=== PATIENT | male | born 1975 | race Caucasian/White ===

== ENCOUNTER 2019-04-20 12:17 | Emergency (ER) | payer OTHER ==
[2019-04-20] MEDS ORDERED: Aspirin 81 mg CHEW TAB* 81 MG TAB.CHEW PO ONE (12:31)
[2019-04-20 12:32] VITALS: BP 111/68
--- NOTE | 2019-04-20 12:41 | UC ---
Cardiac HPI - HPI Summary HPI Summary: 43-year-old male presents with complaints of palpitations, chest tightness, and shortness of breath. States last night around 8:00 or 9:00 PM he was sitting on the couch watching television and had a "funny feeling" in his chest with some chest tightness and shortness of breath. Reports he took his pulse and was in the 40s. Episode subsided after a few minutes. Patient states he was at work today, sitting in a chair, and again developed some chest tightness and shortness of breath that lasted for several minutes. Patient also states that he has had some intermittent lower abdominal cramping for the past 2 days. No personal or family history of heart disease. Denies fever, chills, cough, dizziness, weakness, diaphoresis, nausea, vomiting, or diarrhea. - History of Current Complaint Stated Complaint: PALPITATIONS/ABDOMINAL CRAMPING Time Seen by Provider: 04/20/19 12:19 Hx Obtained From: Patient Pain Intensity: 0 - Allergy/Home Medications Allergies/Adverse Reactions: Allergies Allergy/AdvReac Type Severity Reaction Status Date / Time clarithromycin [From Biaxin] Allergy Rash, Verified 04/20/19 12:32 Difficulty Breaking latex Allergy Contact Verified 04/20/19 12:32 Rash Home Medications: Home Medications Acetaminophen [Acetaminophen Extra Strength] 1,000 mg PO Q6H PRN 04/20/19 [ History Confirmed 04/20/19] PMH/Surg Hx/FS Hx/Imm Hx Previously Healthy: Yes - Denies significant PMH - Surgical History Surgical History: Yes Surgery Procedure, Year, and Place: Right Shoulder Surgeries x 4, C4-C5 Fusion, Lumbar Discectomy - Family History Known Family History: Positive: Non-Contributory - Social History Occupation: Employed Full-time Lives: With Family Alcohol Use: Rare Substance Use Type: None Smoking Status (MU): Former Smoker Length of Time of Smoking/Using Tobacco: 1/2 PPD x 12 Years When Did the Patient Quit Smoking/Using Tobacco: November 2018 Review of Systems All Other Systems Reviewed And Are Negative: Yes Constitutional: Negative: Fever, Chills Respiratory: Positive: Shortness Of Breath. Negative: Cough Cardiovascular: Positive: Palpitations, Chest Pain Gastrointestinal: Positive: Abdominal Pain. Negative: Vomiting, Diarrhea, Nausea Genitourinary: Positive: Negative Musculoskeletal: Positive: Negative Neurological: Positive: Negative Is Patient Immunocompromised?: No Physical Exam - Summary Physical Exam Summary: GENERAL APPEARANCE: Well developed, well nourished, alert and cooperative, and appears to be in no acute distress. CARDIAC: Normal S1 and S2. No S3, S4 or murmurs. Rhythm is regular. There is no peripheral edema, cyanosis or pallor. Extremities are warm and well perfused. Capillary refill is less than 2 seconds. Peripheral pulses intact. LUNGS: Clear to auscultation without rales, rhonchi, wheezing or diminished breath sounds. ABDOMEN: Positive bowel sounds. Soft, nondistended, nontender. No guarding or rebound. No masses or hepatosplenomegally. MUSKULOSKELETAL: ROM intact to all extremities. No joint erythema or tenderness. Normal muscular development. Normal gait. SKIN: Skin normal color, texture and turgor with no lesions or eruptions. Triage Information Reviewed: Yes Vital Signs: Initial Vital Signs Temp 98.4 F 04/20/19 12:28 Pulse 75 04/20/19 12:28 Resp 16 04/20/19 12:28 BP 111/68 04/20/19 12:28 Pulse Ox 100 04/20/19 12:28 Vital Signs Reviewed: Yes Diagnostics - EKG Summary of EKG Findings: NSR rate of 72. Nonspecific T-wave changes. Minimal GODWIN in anterior leads. No ectopy noted. No previous study for comparison. - Assessment/Plan Course Of Treatment: 43-year-old male presents with complaints of palpitations, chest tightness, and shortness of breath. States last night around 8:00 or 9:00 PM he was sitting on the couch watching television and had a "funny feeling" in his chest with some chest tightness and shortness of breath. Reports he took his pulse and was in the 40s. Episode subsided after a few minutes. Patient states he was at work today, sitting in a chair, and again developed some chest tightness and shortness of breath that lasted for several minutes. Patient also states that he has had some intermittent lower abdominal cramping for the past 2 days. No personal or family history of heart disease. Denies fever, chills, cough, dizziness, weakness, diaphoresis, nausea, vomiting, or diarrhea. Afebrile. Vital signs stable. Exam is overall unremarkable. Twelve-lead EKG showed normal sinus rhythm rate of 72. Nonspecific T-wave changes. Minimal GODWIN in anterior leads. No ectopy noted. No previous study for comparison. Based on patient's history and the presence of EKG changes recommending that he be evaluated in the emergency room with transport by EMS. Patient is agreeable to this. An IV was established and the patient was given aspirin 324 mg PO prior to transport. - Differential Diagnoses - Chest Pain Differential Diagnosis/HQI/PQRI: Acute UT, ACS, GI Disease, Lower Respiratory Infection - Clinical Impression Provider Diagnosis: Chest pain Discharge ED - Sign-Out/Discharge Documenting (check all that apply): Patient Departure All imaging exams completed and their final reports reviewed: No Studies - Discharge Plan Condition: Guarded Disposition: TRANS HIGHER LVL OF CARE FAC - Billing Disposition and Condition Condition: GUARDED Disposition: Trans Higher Lvl of Care Fac
== END 2019-04-20 12:59 | disposition short-term general hospital (02) ==
LOC: UCCORT 12:17
DX: R07.9 Chest pain, unspecified (principal); Z87.891 Personal history of nicotine dependence; Z88.1 Allergy status to other antibiotic agents
CPT/HCPCS: 93005; 99203; A9270-GY; G0463

== ENCOUNTER 2019-04-20 13:59 | Emergency (ER) | payer OTHER ==
--- NOTE | 2019-04-20 14:36 | ED ---
HPI Cardiac - HPI Summary HPI Summary: 43 year old male presents to [facility] with a chief complaint of intermittent palpitations starting last night. His symptoms began 3 weeks ago when his heart rate went down to 40 bpm at rest. He notes that he had an episode of chest pain and palpitations last night. This morning at 0400 he felt brief chest pain that felt like pressure as well as lower abdominal cramps. He denies nausea, vomiting , dizziness, and feeling near-syncopal. Patient reports no radiation of pain. He received nitro and ASA today with relief in Sx. He has no history of HTN, DM , and HLD. Patient reports no Hx of cardiac disease and no past stress test. PSHx of shoulder surgery, left, x4 and spinal fusion. He quit smoking in November, but continues to vape. No family history of HTN, HLD, or DM. Rare alcohol consumption is noted. No FMHx of IN at his age is noted. - History of Current Complaint Chief Complaint: EDChestPainROMI Stated Complaint: PALIPTATIONS PER EMS Time Seen by Provider: 04/20/19 14:09 Hx Obtained From: Patient Onset/Duration: Started Hours Ago, Resolved Timing: Intermittent Initial Severity: Mild Current Severity: None Pain Intensity: 0 Pain Scale Used: 0-10 Numeric Chest Pain Radiates: No Associated Signs and Symptoms: Positive: Chest Pain, Palpitations, Abdominal Pain, Other: - negative - Feelings of syncope. Negative: Dizziness, Lightheadedness, Nausea, Vomiting - Allergy/Home Medications Allergies/Adverse Reactions: Allergies Allergy/AdvReac Type Severity Reaction Status Date / Time clarithromycin [From Biaxin] Allergy Rash, Verified 04/20/19 12:32 Difficulty Breaking latex Allergy Contact Verified 04/20/19 12:32 Rash PMH/Surg Hx/FS Hx/Imm Hx Previously Healthy: Yes Endocrine/Hematology History: Denies: Hx Diabetes Cardiovascular History: Denies: Hx Hypercholesterolemia, Hx Hypertension - Surgical History Surgery Procedure, Year, and Place: Right Shoulder Surgeries x 4, C4-C5 Fusion, Lumbar Discectomy Infectious Disease History: No Infectious Disease History: Denies: Traveled Outside the [place] in Last 30 Days - Family History Known Family History: Negative: Cardiac Disease, Hypertension, Diabetes - Social History Alcohol Use: Rare Substance Use Type: Reports: None Smoking Status (MU): Former Smoker Length of Time of Smoking/Using Tobacco: 1/2 PPD x 12 Years Review of Systems Positive: Palpitations, Chest Pain Positive: Abdominal Pain. Negative: Vomiting, Nausea Neurological: Other - negative - dizziness, light-headedness Negative: Syncope - felt like he might syncope All Other Systems Reviewed And Are Negative: Yes Physical Exam - Summary Physical Exam Summary: VITAL SIGNS: Reviewed. GENERAL: Patient is a well-developed and nourished male who is lying comfortable in the stretcher. Patient is not in any acute respiratory distress. HEAD AND FACE: No signs of trauma. No ecchymosis, hematomas or skull depressions. No sinus tenderness. EYES: PERRLA, EOMI x 2, No injected conjunctiva, no nystagmus. EARS: Hearing grossly intact. Ear canals and tympanic membranes are within normal limits. MOUTH: Oropharynx within normal limits. NECK: Supple, trachea is midline, no adenopathy, no JVD, no carotid bruit, no c- spine tenderness, neck with full ROM. CHEST: Symmetric, no tenderness at palpation. LUNGS: Clear to auscultation bilaterally. No wheezing or crackles. CVS: Regular rate and rhythm, S1 and S2 present, no murmurs or gallops appreciated. ABDOMEN: Soft, non-tender. No signs of distention. No rebound, no guarding, and no masses palpated. Bowel sounds are normal. EXTREMITIES: FROM in all major joints, no edema, no cyanosis or clubbing. NEURO: Alert and oriented x 3. No acute neurological deficits. Speech is normal and follows commands. SKIN: Dry and warm. Triage Information Reviewed: Yes Vital Signs On Initial Exam: Initial Vitals Temp Pulse Resp BP Pulse Ox 97.8 F 64 18 115/69 98 04/20/19 14:02 04/20/19 14:02 04/20/19 14:02 04/20/19 14:02 04/20/19 14:02 Vital Signs Reviewed: Yes Diagnostics - Vital Signs Vital Signs Temp Pulse Resp BP Pulse Ox 04/20/19 14:02 97.8 F 64 18 115/69 98 - Laboratory Result Diagrams: 04/20/19 14:26 04/20/19 14:26 Lab Statement: Any lab studies that have been ordered have been reviewed, and results considered in the medical decision making process. - Radiology CXR Radiology Interpretation Completed By: Radiologist Summary of Radiographic Findings: CXR shows no active cardiopulmonary disease. ED physician has reviewed this report. - EKG 1404 Cardiac Rate: NL - 63 bpm EKG Rhythm: Sinus Rhythm Summary of EKG Findings: EKG at 1404 shows normal sinus rhythm at [address] elevation. Q wave in lead 3. This EKG was reviewed and interpreted by ED physician. Disposition - Course Assessment/Plan: This patient is a 43-year-old male who presents to the emergency department with a chief complaint of having chest pain or palpitations. The patient went to the urgent care where he was given an aspirin and nitroglycerin and the chest pain resolved. The patient has a past medical history of hypertension. Blood test results without any significant abnormality except for troponin of 0.05. Urinalysis is negative for UTI. EKG shows a normal sinus rhythm at 62 bpm there is no ST elevations. Patient is has Q waves in II and III, and AVF. At this time I discussed my physical exam and findings with the patient and the need for admission to the hospitalist for further workup and management. The patient declined admission. 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 I extensively discussed with the patient the benefits and risks of leaving AMA. I also discussed the alternatives to leaving AMA, however, the patient still insist to leave the hospital AMA. The patient is clinically sober , free from distracting injury, appears to have intact insight and judgment and reason and in my opinion has the capacity to make decisions. Patient has full capacity and is cognitively intact. The patient presents with chest pain and palpitations, I have explained that I am concerned with these symptoms as they may represent IN and . The patient verbalizes understanding of my concerns. I have also explained the results of the labs and even though they are abnormal, patient wants to leave AMA. The primary nurse and the charge nurse also strongly recommended that the patient should not leave AMA. Patient understands the risks of leaving AMA, which includes but is not restricted to . Patient signed the AMA form. Patient was also advised to return to ED if he changes his mind or if the symptoms worsen or other symptoms appear. Patient understands and agrees. Again, I discussed all the findings and test results with the patient. Patient was instructed to return to the emergency room immediately if any of the symptoms return or worsen. Plan of care was discussed with the patient and understands and agrees. All questions were answered at patient satisfaction. There were no further complaints or concerns. Patient signed AMA and he was discharged AMA. He was given a prescription for nitroglycerin SL - Diagnoses Provider Diagnoses: Angina of effort, Elevated troponin Discharge ED - Sign-Out/Discharge Documenting (check all that apply): Patient Departure - AMA Patient Received Moderate/Deep Sedation with Procedure: No - Discharge Plan Condition: Fair Disposition: AGAINST MEDICAL ADVICE Prescriptions: Nitroglycerin TAB 0.4 MG* 0.4 mg SL Q5M PRN #50 tab PRN Reason: Angina Patient Education Materials: Angina (ED) Referrals: [facility] [Outside] Additional Instructions: Follow up with your primary care provider in 2-3 days. Return to the Emergency Department if you develop new or worsened symptoms. - Billing Disposition and Condition Condition: FAIR Disposition: Against Medical Advice - Attestation Statements Document Initiated by Scribe: Yes Documenting Scribe: SHAN ZURITA Provider For Whom Scribe is Documenting (Include Credential): GROVER AGUILAR MD Scribe Attestation: SHAN Nunez, scribed for GROVER AGUILAR MD on 04/22/19 at 1112. Scribe Documentation Reviewed: Yes Provider Attestation: The documentation as recorded by the SHAN blue accurately reflects the service I personally performed and the decisions made by GROVER sewell MD Status of Scribe Document: Viewed
[2019-04-20 14:39] LABS: Urine Appearance Clear; Urine Bacteria Absent (Absent); Urine Bilirubin Negative (Negative); Urine Blood Negative (Negative); Urine Color Yellow; Urine Glucose Negative (Negative); Urine Ketones Negative (Negative); Urine Nitrite Negative (Negative); Urine Protein Negative (Negative); Urine Red Blood Cell 1+(3-5/hpf) (Absent); Urine Specific Gravity 1.008 (1.010-1.030); Urine Squamous Epithelial Cell Present (Absent); Urine Urobilinogen Negative (Negative); Urine White Blood Cell Trace(0-5/hpf) (Absent)
[2019-04-20 14:50] LABS: INR 1.1 (0.82-1.09)
[2019-04-20 15:02] LABS: ALT 21 U/L (7-52); AST 19 U/L (13-39); Albumin 4.5 g/dL (3.2-5.2); Albumin/Globulin Ratio 1.9 (1-3); Alkaline Phosphatase 64 U/L (34-104); Anion Gap 4 mmol/L (2-11); BUN/Creatinine Ratio 11.2 (8-20); Blood Urea Nitrogen 11 mg/dL (6-24); CO2 Carbon Dioxide 30 mmol/L (22-32); Calcium 9.6 mg/dL (8.6-10.3); Chloride 104 mmol/L (101-111); Creatine Kinase 74 U/L (10-223); EGFR African American 101.5 (>60); EGFR Non-African American 83.9 (>60); Globulin 2.4 g/dL (2-4); Glucose 92 mg/dL (70-100); Potassium 4.3 mmol/L (3.5-5.0); Sodium 138 mmol/L (135-145); Total Protein 6.9 g/dL (6.4-8.9)
[2019-04-20 15:04] LABS: ABS Eosinophils 0.1 10^3/ul (0-0.6); ABS Lymphocytes 2.4 10^3/ul (1.0-4.8); ABS Monocytes 0.8 10^3/ul (0-0.8); ABS Neutrophils 5.8 10^3/ul (1.5-7.7); Eosinophil % 1.1 %; Hematocrit 42 % (42-52); Hemoglobin 14.8 g/dL (14.0-18.0); Lymphocyte % 25.7 %; Mean Corpuscular HGB Conc 36 g/dL (31-36); Mean Corpuscular Hemoglobin 32 pg (27-31); Mean Corpuscular Volume 90 fL (80-94); Mean Platelet Volume 7.8 fL (7.4-10.4); Nucleated Red Blood Cells % 0.1; Platelet Count 151 10^3/uL (150-450); Red Cell Distribution Width 12 % (10-15); White Blood Count 9.1 10^3/uL (3.5-10.8)
[2019-04-20 15:06] LABS: CKMB ng/mL 1.6 ng/mL (0.6-6.3); Troponin I 0.05 ng/mL (<0.04)
[2019-04-20 17:56] LABS: Troponin I 0.04 ng/mL (<0.04)
[2019-04-20 18:29] VITALS: BP 105/62
== END 2019-04-20 18:29 | disposition left against medical advice (07) ==
LOC: ED 13:59
DX: I20.8 Other forms of angina pectoris (principal); R79.89 Other specified abnormal findings of blood chemistry; R07.9 Chest pain, unspecified; R00.2 Palpitations; R10.9 Unspecified abdominal pain; Z87.891 Personal history of nicotine dependence; R94.31 Abnormal electrocardiogram [ECG] [EKG]
CPT/HCPCS: 36415; 71045; 80053; 81003; 81015; 82550; 82553; 83605; 83735; 83880; 84443; 84484; 85025; 85610; 87086; 93005; 99283

== ENCOUNTER 2019-07-02 12:00 | Emergency (ER) | payer OTHER ==
[2019-07-02 13:09] VITALS: BP 112/68
--- NOTE | 2019-07-02 13:34 | UC ---
Back Pain HPI - HPI Summary HPI Summary: right lower back pain x 1 day s/p work injury , sudden onset right lower back pain as he was trying to lift a pt. at work pain is sharp , 10 out of 10 radiating to his right leg worse with movement , better with rest no numbness , no weakness of his lower ext. no urinary symptoms - History of Current Complaint Chief Complaint: UCBackPain Stated Complaint: BACK INJ (WORKERS COMP) Time Seen by Provider: 07/02/19 13:09 Hx Obtained From: Patient Onset/Duration: Sudden Onset, Lasting Days - 1, Still Present Timing: Constant Severity Initially: Severe Severity Currently: Severe Pain Intensity: 10 Back Pain: Is Discrete @ - right lower marta Character: Sharp, Spasmodic Aggravating Factor(s): Movement, Lifting, Bending, Walking, Cough Alleviating Factor(s): Rest Associated Signs And Symptoms: Negative: Swelling, Redness, Bruising, Fever, Weakness, Numbness, Tingling, Bladder Incontinence - Allergies/Home Medications Allergies/Adverse Reactions: Allergies Allergy/AdvReac Type Severity Reaction Status Date / Time clarithromycin [From Biaxin] Allergy Rash, Verified 07/02/19 12:59 Difficulty Breaking latex Allergy Contact Verified 07/02/19 12:59 Rash Home Medications: Home Medications Acetaminophen TAB* [Tylenol TAB*] 975 mg PO Q4H PRN 07/02/19 [History Confirmed 07/02/19] PMH/Surg Hx/FS Hx/Imm Hx - Additional Past Medical History Additional PMH: Multipal injuries and fractures from a 20 ft fall, 2003 - Surgical History Surgical History: Yes Surgery Procedure, Year, and Place: left Shoulder Surgeries x 4, C4-C5 Fusion, Lumbar Discectomy - Family History Known Family History: Positive: Non-Contributory Negative: Cardiac Disease, Hypertension, Diabetes - Social History Alcohol Use: Rare Substance Use Type: None Smoking Status (MU): Former Smoker Length of Time of Smoking/Using Tobacco: 1/2 PPD x 12 Years When Did the Patient Quit Smoking/Using Tobacco: November 2018 Review of Systems All Other Systems Reviewed And Are Negative: Yes Is Patient Immunocompromised?: No Physical Exam Triage Information Reviewed: Yes Appearance: Well-Appearing, No Pain Distress, Well-Nourished Vital Signs: Initial Vital Signs Temp 97.7 F 07/02/19 13:01 Pulse 55 07/02/19 13:01 Resp 16 07/02/19 13:01 BP 112/68 07/02/19 13:01 Pulse Ox 100 07/02/19 13:01 Vital Signs Reviewed: Yes Eye Exam: Normal Eyes: Positive: Conjunctiva Clear ENT: Positive: Normal ENT inspection, Hearing grossly normal, Pharynx normal Neck: Positive: Supple, Nontender, No Lymphadenopathy Respiratory: Positive: Chest non-tender, Lungs clear, Normal breath sounds Cardiovascular: Positive: RRR, No Murmur, Pulses Normal Neurological: Positive: Other: - lower back : no swelling , no bruising, no tenderness, pain with flexion and extension with LROM on flexion, limited Strength Diagnostics - Radiology No standard instances Radiology Interpretation Completed By: Radiologist Summary of Radiographic Findings: xray lumbar spine : IMPRESSION: #. 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 #. 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 Back Pain Course/Dx - Differential Dx/Diagnosis Provider Diagnosis: Strain of fascia of lower back Discharge ED - Sign-Out/Discharge Documenting (check all that apply): Patient Departure All imaging exams completed and their final reports reviewed: Yes - Discharge Plan Condition: Stable Disposition: HOME Prescriptions: Cyclobenzaprine TAB* [Flexeril 10 MG TAB*] 10 mg PO BID #20 tab Naproxen [Naproxen 500 mg tab] 500 mg PO BID #20 tablet. Patient Education Materials: Low Back Strain (ED) Forms: *Work Release Referrals: No Primary Care Phys,NOPCP [Primary Care Provider] - 7 Days - Billing Disposition and Condition Condition: STABLE Disposition: Home
== END 2019-07-02 14:03 | disposition home or self-care (01) ==
LOC: UCCORT 12:00
DX: S39.012A Strain of muscle, fascia and tendon of lower back, initial encounter (principal); M47.896 Other spondylosis, lumbar region; Z88.1 Allergy status to other antibiotic agents; Z91.040 Latex allergy status; Z87.891 Personal history of nicotine dependence; X58.XXXA Exposure to other specified factors, initial encounter; Y92.9 Unspecified place or not applicable
CPT/HCPCS: 72110; 99212; G0463